=== PATIENT | female | born 1945 ===

== ENCOUNTER 2018-07-18 20:47 | Emergency (ER) | payer MEDICARE, MEDICAID ==
[2018-07-18 20:52] VITALS: TEMP 98.8; O2SAT 98
[2018-07-18 20:59] VITALS: RESP 16
[2018-07-18] MEDS ORDERED: Labetalol 5mg/ml (4ml) IVP STA ×2 (21:18→22:38)
--- NOTE | 2018-07-18 21:31 | ED PDOC ---
HPI: Hypertension/Hypotension Time Seen by Provider: 07/18/18 21:01 Chief Complaint (Nursing): High Blood Pressure Chief Complaint (Provider): High Blood Pressure History Per: Patient History/Exam Limitations: no limitations Onset/Duration Of Symptoms: Days (x1) Associated Symptoms: Dizziness Additional Complaint(s): 73 y/o female with history of HTN, diabetes, and dyslipidemia presents to the ED complaining of shortness of breath and dizziness for x1 day. Patient reports she felt dizzy this afternoon as well had some mild shortness of breath. Patient also noticed her blood pressure was elevated despite taking her medications. Denies any chest pain or headache. Patient does report some mild swelling to her lower extremities. Past Medical History Reviewed: Historical Data, Nursing Documentation, Vital Signs Vital Signs: Last Vital Signs Temp 98.8 F 07/18/18 20:49 Pulse 86 07/18/18 20:59 Resp 16 07/18/18 20:59 BP 224/104 H 07/18/18 20:59 Pulse Ox 98 07/18/18 20:49 - Medical History PMH: Diabetes, HTN, Hypercholesterolemia Denies: Chronic Kidney Disease - Surgical History Surgical History: Cholecystectomy - Family History Family History: States: Unknown Family Hx - Home Medications Home Medications: Ambulatory Orders Medication Instructions Recorded Valsartan [Diovan] 1 tab PO DAILY 10/07/15 metFORMIN [glucOPHAGE] 1 tab PO DAILY 10/07/15 Omeprazole [Prilosec] 40 mg PO DAILY 11/04/15 Pioglitazone [Actos] 30 mg PO DAILY 11/04/15 - Allergies Allergies/Adverse Reactions: Allergies Allergy/AdvReac Type Severity Reaction Status Date / Time No Known Allergies Allergy Verified 10/07/15 09:14 Review of Systems ROS Statement: Except As Marked, All Systems Reviewed And Found Negative Cardiovascular: Positive for: Edema (lower extremities). Negative for: Chest Pain Respiratory: Positive for: Shortness of Breath Neurological: Positive for: Dizziness. Negative for: Headache Physical Exam - Reviewed Nursing Documentation Reviewed: Yes Vital Signs Reviewed: Yes - Physical Exam Appears: Positive for: Well, Non-toxic, No Acute Distress Head Exam: Positive for: ATRAUMATIC, NORMAL INSPECTION, NORMOCEPHALIC Skin: Positive for: Normal Color, Warm, DRY Eye Exam: Positive for: EOMI, Normal appearance, PERRL ENT: Positive for: Normal ENT Inspection Neck: Positive for: Normal, Painless ROM Cardiovascular/Chest: Positive for: Regular Rate, Rhythm. Negative for: Murmur Respiratory: Positive for: Normal Breath Sounds. Negative for: Respiratory Distress Gastrointestinal/Abdominal: Positive for: Normal Exam, Soft. Negative for: Tenderness Back: Positive for: Normal Inspection Extremity: Positive for: Normal ROM, Pedal Edema (trace edema to lower extremities bilaterally). Negative for: Deformity Neurologic/Psych: Positive for: Alert, Oriented. Negative for: Motor/Sensory Deficits - Laboratory Results Result Diagrams: 07/18/18 21:20 07/18/18 21:20 - ECG O2 Sat by Pulse Oximetry: 98 (RA) Pulse Ox Interpretation: Normal - Critical Care Total Time (In Min): 30 Documented Critical Care: Time excludes all time spent performint seperately billable procedures Medical Decision Making Medical Decision Making: Time: 21:04 Initial Impression: 73 y/o with dizziness and shortness of breath in setting of accelerated hypertension Initial Plan: * EKG * BNP * CMP * Troponin I * CBC w/ diff * PTT * Prothrombin time * CXR * Labetalol 20 mg Time: 0017 --Labs reviewed, demonstrate no clinically significant abnormalities, chest x- ray shows no active disease. Significant improvement in blood pressure and patient reports feeling improved. Provider encourages patient to resume blood pressure medications as prescribed. Patient advised to follow up with PMD tomorrow. ---- Scribe Attestation: Documented by Shiv Rdz, acting as a scribe for Burt Cramer MD. Provider Scribe Attestation: All medical record entries made by the Scribe were at my direction and persona lly dictated by me. I have reviewed the chart and agree that the record accurately reflects my personal performance of the history, physical exam, medical decision making, and the department course for this patient. I have also personally directed, reviewed, and agree with the discharge instructions and disposition. Disposition - Clinical Impression Clinical Impression: Hypertension - Disposition Disposition Time: 00:17 Condition: STABLE Instructions: High Blood Pressure in Adults Forms: [facility] (Estonian) Print Language: [email or web address]
[2018-07-18 21:36] LABS: BASO # 0.1 K/uL (0.0-0.2); BASO % 0.6 % (0.0-2.0); EOS # 0.4 K/uL (0.0-0.7); EOS % 4.9 % (0.0-4.0); HEMOGLOBIN 10.3 g/dL (12.0-16.0); LYMPH # 1.8 K/uL (1.0-4.3); LYMPH % 21.1 % (20.0-40.0); MEAN CELL VOLUME 85.2 fl (81.0-99.0); MEAN CORPUSCULAR HEMOGLOBIN 27.8 pg (27.0-31.0); MEAN CORPUSCULAR HGB CONC 32.6 g/dL (33.0-37.0); MEAN PLATELET VOLUME 6.6 fl (7.2-11.7); MONO # 0.7 K/uL (0.0-0.8); MONO % 7.8 % (0.0-10.0); NEUT # 5.5 K/uL (1.8-7.0); NEUT % 65.6 % (50.0-75.0); NRBC % 0.1 % (0.0-0.0); RBC 3.73 Mil/uL (3.80-5.20); RED CELL DISTRIBUTION WIDTH 15.4 % (11.5-14.5); WHITE BLOOD COUNT 8.4 K/uL (4.8-10.8)
[2018-07-18 21:39] LABS: PROTHROMBIN TIME 11.6 Seconds (9.8-13.1)
[2018-07-18 21:41] LABS: PARTIAL THROMBOPLASTIN TIME 33.1 Seconds (25.6-37.1)
[2018-07-18] MEDS ORDERED: Labetalol 5mg/ml (4ml) ONE ×2 (21:48→22:55)
[2018-07-18 21:57] LABS: ALB/GLOB RATIO 1.4 (1.0-2.1); ALT/SGPT 27 U/L (9-52); AST/SGOT 27 U/L (14-36); B-TYPE NATRIURETIC PEPTIDE 750 pg/ml (0-900); BLOOD UREA NITROGEN 16 mg/dl (7-17); GFR NON-AFRICAN AMERICAN 49
[2018-07-19 00:25] VITALS: BP 179/84; PULSE 69
--- NOTE | 2018-07-19 07:18 | CARD ---
APPROVED REPORT Date of service: 07/18/2018 EKG Measurement Heart [id number] <Conclusion> Normal sinus rhythm Nonspecific ST abnormality Abnormal ECG
--- NOTE | 2018-07-19 11:02 | RAD ---
Date of service: 07/18/2018 HISTORY: chest pain COMPARISON: Chest radiograph dated 08/28/2009. FINDINGS: LUNGS: No active pulmonary disease. PLEURA: No significant pleural effusion identified, no pneumothorax apparent. CARDIOVASCULAR: Aortic atherosclerotic calcifications. Cardiomediastinal silhouette stably enlarged. OSSEOUS STRUCTURES: Changed. VISUALIZED UPPER ABDOMEN: Normal. OTHER FINDINGS: None. IMPRESSION: No active disease.
== END 2018-07-19 00:41 | disposition home or self-care (01) ==
LOC: H.ER 20:47
DX: I10 Essential (primary) hypertension (principal); E11.9 Type 2 diabetes mellitus without complications; E78.00 Pure hypercholesterolemia, unspecified; Z79.84 Long term (current) use of oral hypoglycemic drugs